=== PATIENT | male | born 1945 | race Caucasian/White ===

== ENCOUNTER → 2019-04-11 | Outpatient (CLI) | payer OTHER ==
[~2019-04-11] VITALS: Ht 180.3 cm; Wt 79.4 kg
[~2019-04-11] MED LIST: AMARYL2 MG PO; ASPIR 8181 MG PO; CARVEDILOL3.125 MG PO; FISH OIL 1,2001 EACH PO; GLUCOPHAGE1000 MG PO; HYDRALAZINE 2525 MG PO; KEPPRA250 MG PO; LIPITOR40 MG PO; MULTI VITAMIN1 EACH PO; NORVASC10 MG PO; PRINIVIL20 MG PO; VITAMIN D35000 UNI1 PO
--- NOTE | 2019-04-13 11:03 | P ---
[facility] [place] [address] PROCEDURE REPORT Name: LUCIANO HERNANDEZ Room #: REG [facility]#: [id number] Admission: 04/11/19 Attend Phys: Mp Hawthorne Discharge: Date of : 49 Report #: [id number] THIS REPORT FOR: //name// CC: Mp Carlton MD DATE OF SERVICE: 04/11/2019 PROCEDURE PERFORMED: Colonoscopy. HISTORY OF PRESENT ILLNESS: The patient is a 73-year-old male with a history of bright red blood per rectum. His last colonoscopy was 3 years ago in which internal hemorrhoids were noted as well as small external hemorrhoids, otherwise normal at that time. Denies any abdominal pain. He has been using Preparation-H on a p.r.n. basis with minimal improvement. He reports blood at times, not a large amount. He does have some constipation and is on a stool softener. No family history of colon cancer. DESCRIPTION OF PROCEDURE: The risks and benefits of the procedure were explained to the patient, those risks including but not limited to bleeding, perforation and the risk of sedation. He and his understood these risks and gave informed consent. Sedation was given using propofol per anesthesia. Next, a digital rectal exam was initially performed, which was normal, other than a small external hemorrhoid, nonbleeding. Next, using a standard Olympus colonoscope, the scope was placed in the patient's anus and advanced under direct vision to the cecum. The overall prep was excellent. The cecum and ileocecal valve were normal in appearance. Ascending, transverse, and descending colon were normal. In the sigmoid colon, a few small diverticula were noted. No evidence of inflammation, otherwise normal. The rectal mucosa was normal. On retroflexion, medium sized irritated internal hemorrhoids were noted. No active bleeding. Close examination of the anal canal showed no evidence of anal fissure. A small external hemorrhoid was noted. No evidence of recent bleeding. The scope was then withdrawn and the procedure terminated. The patient tolerated the procedure well. IMPRESSION: 1. Medium size irritated internal hemorrhoids, likely source of recent intermittent bright red blood per rectum. 2. Small external hemorrhoid. No evidence of bleeding or irritation. 3. Sigmoid diverticulosis. No evidence of inflammation. RECOMMENDATIONS: 1. Recommend Analpram b.i.d. for the next 2 weeks and then p.r.n. if the patient has continued symptoms, would consult colorectal surgery for further possible treatment options. [address] [address] PROCEDURE REPORT Name: LUCIANO HERNANDEZ Room #: REG [facility].#: [id number] Admission: 04/11/19 Attend Phys: Mp Hawthorne Discharge: Date of : 49 Report #: [id number] 2. Repeat colonoscopy in 10 years. Thank you for allowing me to participate in his care. <ELECTRONICALLY SIGNED> By: Mp Salinas MD 04/13/19 1103 [id number] [id number] Mp Salinas MD /nt
== END | disposition home or self-care (01) ==
LOC: GI 06:53
DX: K64.8 Other hemorrhoids (principal); K64.4 Residual hemorrhoidal skin tags; K57.30 Diverticulosis of large intestine without perforation or abscess without bleeding; I10 Essential (primary) hypertension; E11.9 Type 2 diabetes mellitus without complications; K21.9 Gastro-esophageal reflux disease without esophagitis; E78.5 Hyperlipidemia, unspecified; G47.30 Sleep apnea, unspecified; Z90.49 Acquired absence of other specified parts of digestive tract; Z86.73 Personal history of transient ischemic attack (TIA), and cerebral infarction without residual deficits; Z98.41 Cataract extraction status, right eye; Z98.42 Cataract extraction status, left eye; Z87.442 Personal history of urinary calculi; Z98.890 Other specified postprocedural states; Z79.82 Long term (current) use of aspirin; Z79.899 Other long term (current) drug therapy
CPT/HCPCS: 62110; 62900

== ENCOUNTER → 2019-10-03 | Outpatient (CLI) | payer OTHER ==
[~2019-10-03] VITALS: Ht 177.8 cm; Wt 77.1 kg
[~2019-10-03] MED LIST changes: +CARVEDILOL12.5 MG PO
--- NOTE | ~2019-10-03 | P ---
[facility] [place] [address] [place] [address] PROCEDURE REPORT Name: LUCIANO HERNANDEZ Room #: REG [facility]#: [id number] Admission: 10/03/19 Attend Phys: Mp Hawthorne Discharge: Date of : 49 Report #: [id number] THIS REPORT FOR: cc: Alejandra Carlton MD,Mp Moyer MD, MD ~ CC: Mp Carlton MD DATE OF SERVICE: 10/03/2019 PROCEDURE PERFORMED: Upper endoscopy with biopsies and esophageal dilation. HISTORY OF PRESENT ILLNESS: The patient is a 74-year-old male with a history of gastroesophageal reflux disease and Bray's esophagus. Last biopsies were 3 years ago showing Bray's with no dysplasia. He does report intermittent dysphagia. He also has a previous history of CVA. Plan is for repeat upper endoscopy today. DESCRIPTION OF PROCEDURE: The risks and benefits of the procedure were explained to the patient, those risks including but not limited to bleeding, perforation and the risk of sedation. He understood these risks and gave informed consent. Sedation was given using propofol per anesthesia. Next, using a standard Olympus upper endoscope, the scope was placed in the patient's mouth and advanced under direct vision through the esophagus, stomach and into the second portion of the duodenum. The upper and mid esophagus was normal in appearance. In the distal esophagus, a 5 cm segment of Bray's was noted. Biopsies were obtained. Overall, the gastric mucosa was normal. There was a small amount of food residual within the stomach. The pylorus was normal and patent. The duodenal bulb, first and second portion were all normal. The scope was then brought back up into the patient's stomach and a Savary guidewire was inserted through the scope, leaving the guidewire in place as the scope was then withdrawn. Next, a 48-Thai Savary dilation of the esophagus was performed without difficulty. The wire and dilator were removed. The scope was reintroduced into the patient's stomach. There was no evidence of mucosal tear after dilation. The scope was then withdrawn and the procedure terminated. The patient tolerated the procedure well. IMPRESSION: 1. A 5 cm segment of Bray's esophagus, biopsies obtained. 2. Small food residual in the stomach. 3. Otherwise, normal upper endoscopy. RECOMMENDATIONS: 1. Await biopsy results. [address] [address] PROCEDURE REPORT Name: DAVIDLUCIANO L Room #: REG [facility]#: [id number] Admission: 10/03/19 Attend Phys: Mp Hawthorne Discharge: Date of : 49 Report #: [id number] 2. Observe the patient post-dilation. Thank you for allowing me to participate in his care. By: 0939 1012 Mp Salinas MD /nt
--- NOTE | 2019-10-05 13:08 | PATH ---
[facility] [place] [address] PATHOLOGY RPT PROCEDURE Name: CLARENCE HERNANDEZ Room #: REG [facility].#: [id number] Admission: 10/03/19 Date of : 49 Discharge: Report #: [id number] Path Case #: [id number] [facility] Accession Number: [id number] . 01 Material submitted: . esophagus - BX OF BALL'S ESOPHAGUS . 01 Clinical history: . History of Ball's esophagus . 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 - Focal mild dysplasia is present. - See comment. (SHA:pit 10/04/2019) QTP 10/04/2019 0933 Local . 02 Comment: This case is also reviewed by Dr. Kay Lawrence. Immunoperoxidase stain P53 is weakly positive and ki67 is moderate. Based on weakly positive P53 a low grade dysplasia is favored. (SHA:pit 10/04/2019) . 02 Electronically signed: . Gonzalez Orellana MD, Pathologist NPI- [id number] . 01 Gross description: . The specimen is received in formalin, labeled "Clarence Hernandez, biopsy of Ball's esophagus". Received are four segments of pale gale soft tissue ranging in size from 0.3 to 0.5 cm in maximum dimensions. The specimen is submitted entirely in cassette A1. (CAA; 10/03/2019) QAC/QAC 10/03/2019 1814 Local . 02 Pathologist provided ICD-10: Z87.19 . 02 CPT . 214573, L33560, J70001 Specimen Comment: A courtesy copy of this report has been sent to [phone], [phone] Specimen Comment: [phone] Specimen Comment: Report sent to and Performed at: [address] [address] PATHOLOGY RPT PROCEDURE Name: CLARENCE HERNANDEZ Room #: REG [facility]#: [id number] Admission: 10/03/19 Date of : 49 Discharge: Report #: [id number] Path Case #: [id number] [id number] MD Geronimo Curry MD Phone: [phone] Performed at: [address] [id number] MD Katherin Malhotra MD Phone: [phone]
== END | disposition home or self-care (01) ==
LOC: GI 07:33
DX: K22.710 Barrett's esophagus with low grade dysplasia (principal); R13.19 Other dysphagia; K21.9 Gastro-esophageal reflux disease without esophagitis; I10 Essential (primary) hypertension; E11.9 Type 2 diabetes mellitus without complications; E78.5 Hyperlipidemia, unspecified; G47.30 Sleep apnea, unspecified; Z98.890 Other specified postprocedural states; Z79.899 Other long term (current) drug therapy; Z95.1 Presence of aortocoronary bypass graft; Z87.442 Personal history of urinary calculi; Z90.49 Acquired absence of other specified parts of digestive tract; Z98.41 Cataract extraction status, right eye; Z98.42 Cataract extraction status, left eye; Z86.73 Personal history of transient ischemic attack (TIA), and cerebral infarction without residual deficits; Z87.19 Personal history of other diseases of the digestive system
CPT/HCPCS: 62110; 62900

== ENCOUNTER → 2019-12-07 | Outpatient (CLI) | payer OTHER ==
[~2019-12-07] VITALS: Ht 177.8 cm; Wt 76.2 kg
[~2019-12-07] MED LIST changes: +NEXIUM20 MG PO
--- NOTE | 2019-12-10 08:46 | P ---
[facility] [place] [address] PROCEDURE REPORT Name: LUCIANO HERNANDEZ Room #: REG [facility]#: [id number] Admission: 12/07/19 Attend Phys: Mp Hawthorne Discharge: Date of : 49 Report #: [id number] THIS REPORT FOR: cc: Alejandra Carlton MD,Mp Moyer MD, MD ~ CC: Mp Carlton DATE OF SERVICE: 12/07/2019 PROCEDURE PERFORMED: Esophagoscopy with ablation of Bray esophagus. HISTORY OF PRESENT ILLNESS: The patient is a 74-year-old male with a history of Bray esophagus, underwent a routine followup upper endoscopy by myself on 10/03/2019 in which a short segment of Bray's was noted in the distal esophagus. Random biopsies were performed at that time, which did show Bray esophagus; however, focal mild dysplasia was noted. In the comment from the pathologist based on weakly positive P53, a low-grade dysplasia is favored. We discussed possible ablation in the office on 10/25/2019 and he and his both agreed to proceed. He is here for his first upper endoscopy with ablation today. He denies any further dysphagia. He did undergo a dilation by myself during his last upper endoscopy. He is on daily PPI therapy. Aspirin has been held for the last several days. DESCRIPTION OF PROCEDURE: The risks and benefits of the procedure were explained to the patient, those risks including but not limited to bleeding, perforation and the risk of sedation. He understood these risks and gave informed consent. Sedation was given using propofol per Anesthesia. Next, using a standard Olympus upper endoscope, the scope was placed in the patient's mouth and advanced under direct vision through the esophagus, stomach and into the second portion of the duodenum. The upper and mid esophagus was normal in appearance. In the distal esophagus, once again Bray's was noted. The upper portion of Bray's was at 38 cm. The lower portion was at 41 cm at the GE junction. Overall, the gastric mucosa was normal other than some small fundic gland type polyps. The pylorus was normal and patent. The duodenal bulb, first and second portion were all normal. The scope was then brought back up into the distal esophagus and the distal esophagus was irrigated with 1% Mucomyst solution mixed with water. This was then aspirated away. Next, the in-channel ablation electrode was advanced through the channel. The Bray tissue was targeted by placing the ablation electrode under direct visualization, so the ablation electrode was in contact with the Bray tissue. Energy was applied twice at 40 W/cm squared and 12 joules/cm squared. Each area was treated twice. I then proceeded with sloughing off the tissue and was retreated as per protocol. All areas of Bray's that were visualized were treated today. [address] [address] PROCEDURE REPORT Name: LUCIANO HERNANDEZ Room #: REG [facility]#: [id number] Admission: 12/07/19 Attend Phys: Mp Hawthorne Discharge: Date of : 49 Report #: [id number] There was no evidence of bleeding. At this point, the scope was then withdrawn and the procedure terminated. The patient tolerated the procedure well. IMPRESSION: Bray esophagus from 31-41 cm, history of low-grade dysplasia, status post first ablation as described above today. RECOMMENDATIONS: 1. Continue daily PPI therapy. 2. Restart aspirin in 2 days. 3. We will add Carafate for the next week. 4. Repeat esophagoscopy with ablation in 2 months' time. Thank you for allowing me to participate in his care. <ELECTRONICALLY SIGNED> By: Mp Salinas MD 12/10/19 0846 0956 1023 Mp Salinas MD /nt
== END | disposition home or self-care (01) ==
LOC: GI 11-14 12:16
DX: K22.70 Barrett's esophagus without dysplasia (principal); K31.7 Polyp of stomach and duodenum; K21.9 Gastro-esophageal reflux disease without esophagitis; I10 Essential (primary) hypertension; E78.5 Hyperlipidemia, unspecified; E11.9 Type 2 diabetes mellitus without complications; G47.30 Sleep apnea, unspecified; Z79.899 Other long term (current) drug therapy; Z98.890 Other specified postprocedural states; Z86.73 Personal history of transient ischemic attack (TIA), and cerebral infarction without residual deficits; Z90.49 Acquired absence of other specified parts of digestive tract; Z95.1 Presence of aortocoronary bypass graft; Z98.41 Cataract extraction status, right eye; Z98.42 Cataract extraction status, left eye; Z87.442 Personal history of urinary calculi
CPT/HCPCS: 62110; 62900

== ENCOUNTER → 2020-02-01 | Outpatient (CLI) | payer OTHER ==
[~2020-02-01] VITALS: Ht 177.8 cm; Wt 75.8 kg
[~2020-02-01] MED LIST changes: +NORVASC5 M1 PO; +VITAMIN D3100 MCG PO; -VITAMIN D35000 UNI1 PO
--- NOTE | 2020-02-04 09:17 | P ---
[facility] [place] [address] PROCEDURE REPORT Name: LUCIANO HERNANDEZ Room #: REG [facility]#: [id number] Admission: 02/01/20 Attend Phys: Mp Hawthorne Discharge: Date of : 49 Report #: [id number] THIS REPORT FOR: cc: Alejandra Carlton MD,Mp Moyer MD, MD ~ CC: Mp Carlton MD DATE OF SERVICE: 02/01/2020 PROCEDURE PERFORMED: Esophagoscopy with ablation of Bray's. HISTORY OF PRESENT ILLNESS: The patient is a 74-year-old male with a history of Bray's esophagus. Routine followup upper endoscopy on 10/03/2019 showed short segment of Bray's. Random biopsies at that time showed Bray's esophagus with focal mild dysplasia. Low-grade dysplasia was favored. We discussed proceeding with possible ablation, first ablation was performed on 12/07/2019. He tolerated this well. A Bray's location was from 38-41 cm. He is taking Nexium on a daily basis. He denies any symptoms at this time. Denies any dysphagia. Aspirin has been held for the last several days. DESCRIPTION OF PROCEDURE: The risks and benefits of the procedure were explained to the patient, those risks including but not limited to bleeding, perforation and the risk of sedation. He understood these risks and gave informed consent. Sedation was given using propofol per anesthesia. Next, using a standard Olympus upper endoscope, the scope was placed in the patient's mouth and advanced under direct vision through the esophagus, stomach and into the second portion of the duodenum. The larynx was normal in appearance. The upper and mid esophagus was normal. In the distal esophagus, once again Bray's esophagus was noted from 38-41 cm. No stricture was noted. Upon entering the stomach, a small amount of food residual was noted in the fundus. Overall, the gastric mucosa was normal. The pylorus was normal and patent. The duodenal bulb, first and second portion were all normal. The scope was then brought back up into the patient's distal esophagus and the distal esophagus was irrigated with a 1% Mucomyst solution mixed with water. This was then aspirated away. Next, the in-channel ablation electrode was advanced through the channel. The Bray's tissue was targeted by placing the ablation electrode under direct visualization, so the ablation electrode was in contact with the Bray's tissue. Energy was applied twice at 40 W/cm squared and 12 joules/cm squared. Each area was treated twice and I then proceeded with sloughing off the tissue and the area was retreated as per protocol. All areas of Bray's that were visualized were treated today. There was no evidence of bleeding after treatment. At this point, the scope was then withdrawn and the procedure terminated. The patient tolerated the procedure well. [address] [address] PROCEDURE REPORT Name: LUCIANO HERNANDEZ Room #: REG [facility]#: [id number] Admission: 02/01/20 Attend Phys: Mp Hawthorne Discharge: Date of : 49 Report #: [id number] IMPRESSION: Bray's esophagus from 38-41 cm, history of low-grade dysplasia, status post second ablation as described above today. RECOMMENDATIONS: 1. Observe the patient post-procedure. 2. Continue daily PPI therapy. 3. Restart aspirin tomorrow. 4. Repeat upper endoscopy with ablation in 2 months' time. Thank you for allowing me to participate in his care. <ELECTRONICALLY SIGNED> By: Mp Salinas MD 02/04/20 0917 0854 0906 Mp Salinas MD /nt
== END | disposition home or self-care (01) ==
LOC: GI 07:21
PROVIDERS: ATTEND Specialist
DX: K22.70 Barrett's esophagus without dysplasia (principal); K21.9 Gastro-esophageal reflux disease without esophagitis; I10 Essential (primary) hypertension; E11.9 Type 2 diabetes mellitus without complications; G47.30 Sleep apnea, unspecified; E78.5 Hyperlipidemia, unspecified; Z98.890 Other specified postprocedural states; Z79.899 Other long term (current) drug therapy; Z87.442 Personal history of urinary calculi; Z95.1 Presence of aortocoronary bypass graft; Z90.49 Acquired absence of other specified parts of digestive tract; Z86.73 Personal history of transient ischemic attack (TIA), and cerebral infarction without residual deficits; Z79.82 Long term (current) use of aspirin; Z11.59 Encounter for screening for other viral diseases
CPT/HCPCS: 62110; 62900

== ENCOUNTER → 2020-03-25 | Outpatient (CLI) | payer OTHER | LOC: LAB 11:11 | PROVIDERS: ATTEND Student in an Organized Health Care Education/Training Program | DX: Z01.812 Encounter for preprocedural laboratory examination (principal); Z11.59 Encounter for screening for other viral diseases ==

== ENCOUNTER → 2020-03-28 | Outpatient (CLI) | payer OTHER ==
[~2020-03-28] VITALS: Ht 180.3 cm; Wt 77.1 kg
--- NOTE | 2020-03-31 10:20 | P ---
[facility] [place] [address] PROCEDURE REPORT Name: LUCIANO HERNANDEZ [facility] [id number] Admission: 03/28/20 Attend Phys: Mp Hawthorne Discharge: Date of : 49 Report #: [id number] THIS REPORT FOR: cc: Alejandra Carlton MD,Mp Moyer MD, MD ~ CC: Mp Carlton MD DATE OF SERVICE: 03/28/2020 PROCEDURE PERFORMED: Esophagoscopy with ablation of Bray's. HISTORY OF PRESENT ILLNESS: The patient is a 74-year-old male with a history of Bray's esophagus. Routine followup upper endoscopy on 10/03/2019 showed a short segment of Bray's. Random biopsies at that time showed Bray's esophagus with focal mild dysplasia. Low-grade dysplasia was favored. We discussed proceeding with possible ablation. His first ablation was performed on 12/07/2019. He tolerated this procedure well. His second ablation was on 01/21/2020. Recently, the Bray's location was from 38-41 cm. He is taking Nexium on a daily basis; however, he is at 20 mg a day. He is having intermittent heartburn symptoms. Denies any dysphagia. No nausea or vomiting. Plan is for repeat upper endoscopy with possible ablation. DESCRIPTION OF PROCEDURE: The risks and benefits of the procedure were explained to the patient, those risks including but not limited to bleeding, perforation and the risk of sedation. He understood these risks and gave informed consent. Sedation was given using propofol per anesthesia. Next, using a standard Olympus upper endoscope, the scope was placed in the patient's mouth and advanced under direct vision through the esophagus, stomach and into the second portion of the duodenum. The larynx was normal in appearance. The upper and mid esophagus were normal. In the distal esophagus, grade B erosive esophagitis was noted. Two small islands and a possible short segment of Bray's was noted at 38 cm at the GE junction, much improved from previous endoscopy. Overall, the gastric mucosa was normal. The pylorus was normal and patent. The duodenal bulb, first and second portion were normal. The scope was then brought back up into the distal esophagus and the distal esophagus was then irrigated with 1% Mucomyst solution mixed with water. This was then aspirated away. Next, the in-channel ablation electrode was advanced through the channel. The Bray's tissue was targeted by placing the ablation electrode under direct visualization, so the ablation electrode was in contact with the Bray's tissue. Energy was applied twice at 40 W/cm squared and 12 joules/cm squared. Each area was treated twice and then proceeded with sloughing off the tissue and retreated as per protocol. A total of 6 ablations were performed today. All areas of ablation that were visualized were treated. There was no [address] [address] PROCEDURE REPORT Name: LUCIANO HERNANDEZ Room #: REG [facility]#: [id number] Admission: 03/28/20 Attend Phys: Mp Hawthorne Discharge: Date of : 49 Report #: [id number] evidence of bleeding after treatment. At this point, the scope was then withdrawn and the procedure terminated. The patient tolerated the procedure well. IMPRESSION: Bray's esophagus at 38 cm, much improved status post ablation today. RECOMMENDATIONS: 1. Observe the patient post-procedure. 2. We will increase Nexium to 40 mg on a daily basis. 3. Restart aspirin tomorrow. 4. Repeat upper endoscopy with possible ablation in 2 months' time. Thank you for allowing me to participate in his care. <ELECTRONICALLY SIGNED> By: Mp Salinas MD 03/31/20 1020 0903 0956 Mp Salinas MD /nt
== END | disposition home or self-care (01) ==
LOC: GI 07:07
PROVIDERS: ATTEND Specialist
DX: K22.70 Barrett's esophagus without dysplasia (principal); I10 Essential (primary) hypertension; E11.9 Type 2 diabetes mellitus without complications; E78.5 Hyperlipidemia, unspecified; K21.9 Gastro-esophageal reflux disease without esophagitis; G47.30 Sleep apnea, unspecified; Z98.890 Other specified postprocedural states; Z79.899 Other long term (current) drug therapy; Z86.73 Personal history of transient ischemic attack (TIA), and cerebral infarction without residual deficits; Z95.0 Presence of cardiac pacemaker; Z95.1 Presence of aortocoronary bypass graft; Z87.442 Personal history of urinary calculi; Z98.41 Cataract extraction status, right eye; Z98.42 Cataract extraction status, left eye
CPT/HCPCS: 62110; 62900

== ENCOUNTER → 2020-06-06 | Outpatient (CLI) | payer OTHER | LOC: LAB 11:54 | PROVIDERS: ATTEND Specialist | DX: Z01.812 Encounter for preprocedural laboratory examination (principal); Z20.828 Contact with and (suspected) exposure to other viral communicable diseases ==

== ENCOUNTER → 2020-06-11 | Outpatient (CLI) | payer OTHER ==
[~2020-06-11] VITALS: Ht 180.3 cm; Wt 81.7 kg
--- NOTE | 2020-06-12 17:32 | P ---
[facility] [place] [address] PROCEDURE REPORT Name: LUCIANO HERNANDEZ Room #: REG [facility]#: [id number] Admission: 06/11/20 Attend Phys: Mp Hawthorne Discharge: Date of : 49 Report #: [id number] THIS REPORT FOR: cc: Alejandra Carlton MD,Mp Moyer MD, MD ~ CC: Mp Carlton DATE OF SERVICE: 06/11/2020 PROCEDURE PERFORMED: Esophagoscopy with ablation. HISTORY OF PRESENT ILLNESS: The patient is a 74-year-old male who presents today for his possible fourth ablation of Bray's esophagus. Routine upper endoscopy in September of this year showed a short segment of Bray's. Biopsies at that time showed focal mild dysplasia. Low-grade dysplasia was favored. He has now undergone 3 ablations so far, last one being on 01/21/2020. Previous location of Bray's was at 38-41 cm. He is taking Nexium on a daily basis. We increased his Nexium to 40 mg on a daily basis after last endoscopy. He denies any dysphagia. DESCRIPTION OF PROCEDURE: The risks and benefits of the procedure were explained to the patient, those risks including but not limited to bleeding, perforation and the risk of sedation. He understood these and his understood these risks and gave informed consent. Sedation was given using propofol per anesthesia. Next, using a standard Olympus upper endoscope, the scope was placed in the patient's mouth and advanced under direct vision through the esophagus, stomach and into the second portion of the duodenum. The upper and mid esophagus was normal in appearance. In the distal esophagus at the GE junction 3 small areas of possible remaining Bray's was noted, also a small area of grade A erosive esophagitis seen. Upon entering the stomach, a small hiatal hernia was once again noted. Overall, the gastric mucosa was normal. The pylorus was normal and patent. The duodenal bulb, first and second portion were all normal. The scope was then brought back up into the patient's distal esophagus and 1% Mucomyst solution mixed with water was irrigated in the distal esophagus and aspirated away. Next, the in-channel ablation electrode was advanced through the channel. The Bray's tissue was targeted by placing the ablation electrode under direct visualization, so the ablation electrode was in contact with the Bray's tissue. Energy was applied twice at 40 W/cm squared and 12 joules/cm squared. Each area was treated twice and then proceeded with sloughing off and treated again as per protocol. No evidence of bleeding was noted after treatment. At this point, the scope was then withdrawn and the procedure terminated. The patient tolerated the procedure well. [address] [address] PROCEDURE REPORT Name: LUCIANO HERNANDEZ Room #: REG [facility]#: [id number] Admission: 06/11/20 Attend Phys: Mp Hawthorne Discharge: Date of : 49 Report #: [id number] IMPRESSION: 1. Short segment Bray's esophagus, status post ablation as described above. 2. Grade A erosive esophagitis. 3. Small hiatal hernia. 4. Otherwise, normal upper endoscopy. RECOMMENDATIONS: 1. Observe the patient post-ablation. 2. We will increase Nexium to b.i.d. for now. 3. Repeat upper endoscopy in 2 months' time. Thank you for allowing me to participate in his care. <ELECTRONICALLY SIGNED> By: Mp Salinas MD 06/12/20 1732 1117 1728 Mp Salinas MD /nt
== END | disposition home or self-care (01) ==
LOC: GI 09:01
PROVIDERS: ATTEND Specialist
DX: K22.70 Barrett's esophagus without dysplasia (principal); K44.9 Diaphragmatic hernia without obstruction or gangrene; I10 Essential (primary) hypertension; E11.9 Type 2 diabetes mellitus without complications; E78.5 Hyperlipidemia, unspecified; G47.30 Sleep apnea, unspecified; K21.9 Gastro-esophageal reflux disease without esophagitis; Z98.890 Other specified postprocedural states; Z79.899 Other long term (current) drug therapy; Z95.1 Presence of aortocoronary bypass graft; Z90.49 Acquired absence of other specified parts of digestive tract; Z87.442 Personal history of urinary calculi; Z86.73 Personal history of transient ischemic attack (TIA), and cerebral infarction without residual deficits; Z98.41 Cataract extraction status, right eye; Z98.42 Cataract extraction status, left eye
CPT/HCPCS: 62110; 62900

== ENCOUNTER → 2020-09-12 | Outpatient (CLI) | payer OTHER | LOC: LAB 10:57 | PROVIDERS: ATTEND Student in an Organized Health Care Education/Training Program | DX: Z01.812 Encounter for preprocedural laboratory examination (principal); Z20.822 Contact with and (suspected) exposure to COVID-19 ==

== ENCOUNTER → 2020-09-17 | Outpatient (CLI) | payer OTHER ==
[~2020-09-17] VITALS: Ht 180.3 cm; Wt 77.1 kg
--- NOTE | ~2020-09-17 | P ---
[facility] [place] [address] PROCEDURE REPORT Name: LUCIANO HERNANDEZ Room #: REG [facility] Aylin#: [id number] Admission: 09/17/20 Attend Phys: Mp Hawthorne Discharge: Date of : 49 Report #: [id number] THIS REPORT FOR: cc: Alejandra Carlton MD, Linda L. MD McElhinney, Christian C. MD ~ DATE OF SERVICE: 09/17/2020 PROCEDURE PERFORMED: Esophagoscopy with ablation of Bray's esophagus. HISTORY OF PRESENT ILLNESS: The patient is a 75-year-old male who has a history of Bray's esophagus. Routine upper endoscopy of 09/2019 showed short segment of Bray's. Biopsies at that time showing focal mild dysplasia. Low-grade dysplasia was favored. Therefore, he started undergoing ablations. He has undergone a total of 4 ablations so far, last one being on 06/11/2020. He is currently taking Nexium on a daily basis at 40 mg per day, still has intermittent symptoms at night. He denies any dysphagia. DESCRIPTION OF PROCEDURE: The risks and benefits of the procedure were explained to the patient, those risks including but not limited to bleeding, perforation and the risk of sedation. He understood these risks and gave informed consent. He and his gave informed consent. Sedation was given using propofol per anesthesia. Next, using a standard Olympus upper endoscope, the scope was placed in the patient's mouth and advanced under direct vision through the esophagus, stomach and into the second portion of the duodenum. The larynx was normal in appearance. The upper and mid esophagus was normal. At the GE junction, small areas of Bray's esophagus was noted in 3 areas, approximately 5 mm above the GE junction. No evidence of esophagitis. No evidence of stricture. On entering the stomach, a small hiatal hernia was once again noted. Overall, the gastric mucosa was normal. The pylorus was normal and patent. The duodenal bulb, first and second portion were all normal. The scope was then brought back up into the patient's distal esophagus and 1% Mucomyst solution mixed with water was irrigated in the distal esophagus and aspirated away. Next, the in-channel ablation electrode was then advanced through the channel. Next, the Bray's tissue was targeted by placing the ablation electrode under direct visualization, so the ablation electrode was in contact with the Bray's tissue. Energy was applied twice at 40 W/cm squared and 12 joules/cm squared. Each area was treated twice and then I proceeded with sloughing off the treated area and the area was once again treated as per protocol. A total of 14 ablations were performed. No evidence of bleeding was noted after treatment. At this point, the scope was then withdrawn and the procedure terminated. The patient tolerated the procedure well. IMPRESSION: 1. Short segment Bray's esophagus, status post ablation as described above. [address] [address] PROCEDURE REPORT Name: LUCIANO HERNANDEZ Room #: REG FABIO Viera#: [id number] Admission: 09/17/20 Attend Phys: Mp Hawthorne Discharge: Date of : 49 Report #: [id number] 2. Small hiatal hernia. 3. Otherwise, normal upper endoscopy. RECOMMENDATIONS: 1. Observe the patient post-ablation. 2. Continue Nexium 40 mg daily, unless he is having increased heartburn symptoms, consider b.i.d. dosing at that time. 3. Repeat upper endoscopy in 2 months' time. Thank you for allowing me to participate in his care. By: [id number] pM Salinas MD /nt
== END | disposition home or self-care (01) ==
LOC: GI 07:21
PROVIDERS: ATTEND Specialist
DX: K22.70 Barrett's esophagus without dysplasia (principal); K44.9 Diaphragmatic hernia without obstruction or gangrene; K21.9 Gastro-esophageal reflux disease without esophagitis; I10 Essential (primary) hypertension; E11.9 Type 2 diabetes mellitus without complications; E78.5 Hyperlipidemia, unspecified; G47.30 Sleep apnea, unspecified; Z86.73 Personal history of transient ischemic attack (TIA), and cerebral infarction without residual deficits; Z98.890 Other specified postprocedural states; Z79.899 Other long term (current) drug therapy; Z95.1 Presence of aortocoronary bypass graft; Z87.442 Personal history of urinary calculi; Z90.49 Acquired absence of other specified parts of digestive tract
CPT/HCPCS: 62110; 62900

== ENCOUNTER → 2020-10-24 | Day surgery (SDC) | payer OTHER ==
[~2020-10-24] MED LIST changes: +ADULT LOW DOSE81 MG PO; -ASPIR 8181 MG PO
== END | disposition home or self-care (01) ==
LOC: LAB 13:40
PROVIDERS: ATTEND Specialist
DX: Z01.812 Encounter for preprocedural laboratory examination (principal); Z20.822 Contact with and (suspected) exposure to COVID-19; K22.70 Barrett's esophagus without dysplasia

== ENCOUNTER → 2020-10-29 | Outpatient (CLI) | payer OTHER ==
[~2020-10-29] VITALS: Ht 180.3 cm; Wt 79.4 kg
--- NOTE | 2020-10-29 09:56 | P ---
[facility] [place] [address] PROCEDURE REPORT Name: LUCIANO HERNANDEZ Room #: REG [facility] Aylin#: [id number] Admission: 10/29/20 Attend Phys: Mp Hawthorne Discharge: Date of : 49 Report #: [id number] THIS REPORT FOR: cc: Alejandra Carlton MD, Linda L. MD McElhinney, Christian C. MD ~ DATE OF SERVICE: 10/29/2020 PROCEDURE PERFORMED: Esophagoscopy with ablation of Bray's esophagus. HISTORY OF PRESENT ILLNESS: The patient is a 75-year-old male with a history of Bray's esophagus, previous biopsy in 09/2019 showed short segment of Bray's. Biopsies at that time showing focal mild dysplasia, low-grade dysplasia was favored. Therefore, we started undergoing ablations. He has undergone a total of 5 ablations so far, last one being on 09/17/2020. He is currently taking Nexium on a daily basis. He denies any symptoms currently. Denies any dysphagia. DESCRIPTION OF PROCEDURE: The risks and benefits of the procedure were explained to the patient and his , those risks including but not limited to bleeding, perforation and the risk of sedation. They understood these risks and gave informed consent. Sedation was given using propofol per anesthesia. Next, using a standard Olympus upper endoscope, the scope was placed in the patient's mouth and advanced under direct vision through the esophagus, stomach and into the second portion of the duodenum. The larynx was normal in appearance. The upper and mid esophagus was normal. At the GE junction, 2 tiny possible small areas of continued Bray's was noted. No evidence of esophagitis. Upon entering the stomach, a small hiatal hernia was again noted. Overall, the gastric mucosa was normal other than gastric polyps, which have been biopsied in the past. The pylorus was normal and patent. The duodenal bulb, first and second portion were all normal. The scope was then brought back up into the patient's distal esophagus and 1% Mucomyst solution mixed with water was irrigated in the distal esophagus and aspirated away. Next, the in-channel ablation electrode was then advanced through the channel. Next, the Bray's tissue was targeted by placing the ablation electrode under direct visualization, so that the ablation electrode was in contact with the Bray's tissue. Energy was applied twice at 40 W/cm squared and 12 joules/cm squared. Each area was treated twice and the area was then sloughed off and treated again as per protocol. A total of 6 ablations were performed. No evidence of bleeding was noted after treatment. At this point, the scope was then withdrawn and the procedure terminated. The patient tolerated the procedure well. IMPRESSION: 1. Possible short segment of Bray's remaining status post ablation as described above. [facility] [address] [place] [address] PROCEDURE REPORT Name: LUCIANO HERNANDEZ Room #: REG [facility] Aylin#: [id number] Admission: 10/29/20 Attend Phys: Mp Hawthorne Discharge: Date of : 49 Report #: [id number] 2. Small hiatal hernia. 3. Otherwise, normal upper endoscopy. RECOMMENDATIONS: 1. Observe the patient post-ablation. 2. Continue daily PPI therapy. 3. Repeat upper endoscopy in 2 months' time. Thank you for allowing me to participate in his care. <ELECTRONICALLY SIGNED> By: Mp Salinas MD 10/29/20 0956 [id number] [id number] Mp Salinas MD /nt
== END | disposition home or self-care (01) ==
LOC: GI 07:25
PROVIDERS: ATTEND Specialist
DX: K22.70 Barrett's esophagus without dysplasia (principal); K44.9 Diaphragmatic hernia without obstruction or gangrene; I10 Essential (primary) hypertension; E11.9 Type 2 diabetes mellitus without complications; E78.5 Hyperlipidemia, unspecified; G47.30 Sleep apnea, unspecified; K21.9 Gastro-esophageal reflux disease without esophagitis; Z86.73 Personal history of transient ischemic attack (TIA), and cerebral infarction without residual deficits; Z98.890 Other specified postprocedural states; Z79.899 Other long term (current) drug therapy; Z90.49 Acquired absence of other specified parts of digestive tract; Z87.442 Personal history of urinary calculi; Z98.41 Cataract extraction status, right eye; Z98.42 Cataract extraction status, left eye
CPT/HCPCS: 62110; 62900

== ENCOUNTER → 2021-01-02 | Outpatient (CLI) | payer OTHER ==
[~2021-01-02] VITALS: Ht 177.8 cm; Wt 78.0 kg
[~2021-01-02] MED LIST changes: +JARDIANCE10 MG PO; +LISINOPRIL30 MG PO; +NEXIUM 40 MG CA40 M1 PO
--- NOTE | 2021-01-05 18:06 | PATH ---
[facility] [address] [place] [address] PATHOLOGY RPT PROCEDURE Name: CLARENCE HERNANDEZ Room #: REG FABIO Dixon.#: [id number] Admission: 01/02/21 Date of : 49 Discharge: Report #: [id number] Path Case #: [id number] [facility] Accession Number: [id number] . 01 Material submitted: . esophagus - DISTAL ESOPHAGUS. Modifiers: distal . 01 Clinical history: . HX OF BARRETTS . STATUS POST ABLATION . 02 Diagnosis: Gastroesophageal mucosa, distal esophagus status post ablation, endoscopic biopsy: - Moderate gastric cardia-type mucosa with mild chronic inflammation. - Negative for intestinal metaplasia or dysplasia. - Squamous mucosa with mild esophagitis. (IUV/db; 01/05/2021) LBQ 01/05/2021 1526 Local . 02 Electronically signed: . Kathrein Malhotra MD, Pathologist NPI- [id number] . 01 Gross description: . Received in formalin labeled "Clarence Hernandez, biopsy distal esophagus" is a fragment of gale-brown soft tissue measuring 0.7 x 0.4 x 0.3 cm. The specimen is submitted entirely in A1. ([facility]; 01/03/2021) GZA/GZA 01/03/2021 1140 Local . 02 Pathologist provided ICD-10: K29.50, K20.90 . 02 CPT . 760425 Specimen Comment: A courtesy copy of this report has been sent to [phone], [phone] Specimen Comment: [phone] Specimen Comment: Report sent to / DR GOYAL Performed at: [address] [id number] MD Gonzalez Orellana MD Phone: [phone] Performed at: [address] [id number] [address] [address] PATHOLOGY RPT PROCEDURE Name: CLARENCE HERNANDEZ Room #: REG FABIO Viera#: [id number] Admission: 01/02/21 Date of : 49 Discharge: Report #: [id number] Path Case #: [id number] MD Katherin Malhotra MD Phone: [phone]
--- NOTE | 2021-01-05 18:14 | P ---
[facility] [place] [address] PROCEDURE REPORT Name: LUCIANO HERNANDEZ Room #: REG [facility]#: [id number] Admission: 01/02/21 Attend Phys: Mp Hawthorne Discharge: Date of : 49 Report #: [id number] THIS REPORT FOR: cc: Alejandra Carlton MD,Mp Moyer MD, MD ~ DOC #: [id number] cc: MD Mp Álvarez MD DATE OF SERVICE: 01/02/2021 PROCEDURE PERFORMED: Upper endoscopy with biopsies and esophageal dilation. HISTORY OF PRESENT ILLNESS: The patient is a 75-year-old male with a history of Bray's esophagus showing focal mild dysplasia, low grade dysplasia was favored. He has undergone several ablations by myself. Total of 6, last one being on 10/29/2020. He is taking Nexium on a daily basis. He has a previous history of CVA. reports intermittent dysphagia at times. Plan is for upper endoscopy. DESCRIPTION OF PROCEDURE: The risks and benefits of the procedure were explained to the patient's , those risks including but not limited to bleeding, perforation and the risk of sedation. She understood these risks and gave informed consent. Sedation was given using propofol per anesthesia. Next, using a standard Olympus upper endoscope, the scope was placed in the patient's mouth and advanced under direct vision through the esophagus, stomach and into the second portion of the duodenum. The upper and mid esophagus was normal in appearance. At the GE junction, no obvious Bray's esophagus was noted. Several biopsies were obtained. No ablation was performed today. No stricture was seen. Upon entering the stomach, a small hiatal hernia was again noted. Overall, the gastric mucosa was normal other than a few gastric polyps, which have been biopsied in the past. The pylorus was normal and patent. The duodenal bulb, first and second portion were all normal. The scope was then brought back up into the patient's stomach and the Savary guidewire was inserted through the scope, leaving the guidewire in place as the scope was then withdrawn. Next, a 48-[place] Savary dilation of the esophagus was performed without difficulty. The wire and dilator were removed. The scope was reintroduced into the patient's stomach. There was no evidence of mucosal tear after dilation. The scope was then withdrawn and the procedure terminated. The patient tolerated the procedure well. IMPRESSION: 1. No obvious recurrent Bray's esophagus noted. Biopsies were obtained at the GE junction. 2. Small hiatal hernia. [address] [address] PROCEDURE REPORT Name: ROD HERNANDEZArley Marcus Room #: REG FABIO Viera#: [id number] Admission: 01/02/21 Attend Phys: Mp Hawthorne Discharge: Date of : 49 Report #: [id number] 3. Gastric polyps. RECOMMENDATIONS: 1. Await biopsy results. 2. Continue daily PPI therapy. 3. Observe the patient post-dilation. Thank you for allowing me to participate in his care. Mp Salinas MD [facility] <ELECTRONICALLY SIGNED> By: Mp Salinas MD 01/05/21 1814 0953 [id number] Mp Salinas MD /nt
== END | disposition home or self-care (01) ==
LOC: GI 07:42
PROVIDERS: ATTEND Specialist
DX: K29.50 Unspecified chronic gastritis without bleeding (principal); K20.90 Esophagitis, unspecified without bleeding; K31.7 Polyp of stomach and duodenum; K44.9 Diaphragmatic hernia without obstruction or gangrene; I10 Essential (primary) hypertension; E78.5 Hyperlipidemia, unspecified; G47.30 Sleep apnea, unspecified; Z95.1 Presence of aortocoronary bypass graft; Z87.442 Personal history of urinary calculi; E11.9 Type 2 diabetes mellitus without complications; K21.9 Gastro-esophageal reflux disease without esophagitis; Z98.890 Other specified postprocedural states; Z79.899 Other long term (current) drug therapy; Z90.49 Acquired absence of other specified parts of digestive tract; Z20.822 Contact with and (suspected) exposure to COVID-19; Z86.73 Personal history of transient ischemic attack (TIA), and cerebral infarction without residual deficits; Z98.41 Cataract extraction status, right eye; Z98.42 Cataract extraction status, left eye
CPT/HCPCS: 62110; 62900